=== PATIENT | male | born 1990 ===

== ENCOUNTER → 2017-03-03 | Outpatient (REF) ==
--- NOTE | 2017-03-03 12:34 | Diagnostic Imaging Report ---
INDICATION: Pre-employment screening. PA and lateral chest obtained at 11:25 a.m. FINDINGS: Heart and mediastinal silhouette are normal in appearance. The lungs are clear. There is no pneumothorax or pleural fluid. IMPRESSION: Negative chest. Dictated by: Dictated on workstation # [id number]
== END ==
LOC: RAD 11:09
PROVIDERS: ATTEND Nurse Practitioner Family
DX: Z02.1 Encounter for pre-employment examination (principal)
CPT/HCPCS: 71020